=== PATIENT | male | born 1965 | race Two or more races ===

== ENCOUNTER 2018-11-12 20:21 | Emergency (ER) | payer BC, OTHER ==
[~2018-11-12] VITALS: Ht 170.2 cm; Wt 77.1 kg
[~2018-11-12 20:21] MED LIST: HYDR25TA4 PO; LISI-603 PO; OMEG1CAP PO
--- NOTE | 2018-11-12 21:05 | NUR ---
PT BIBSELF COMPLAINING OF ABD PAIN X "FEW DAYS". PT STATES 8/10 PAIN, WITH NAUSEA. PT HAS HX OF COLON CANCER. PT AXO4. RESPIRATIONS EVEN AND UNLABORED. PT PUT ON THE LEAD PRESS OPERATOR AND PULSE OX. PENDING EVAL FROM ER .
--- NOTE | 2018-11-12 21:10 | NUR ---
PT AMBULATORY WITH STEADY GAIT TO BATHROOM. URINE SAMPLE OBTAINED.
[2018-11-12] MEDS ORDERED: ONDANSETRON HCL/PF 4 MG/2 ML VIAL IVP ONE (22:30)
[2018-11-12] MEDS ORDERED: IV NS 0.9% 1,000 ML BAG IV ONE (22:30)
[2018-11-12] MEDS ORDERED: FAMOTIDINE/PF INJ 20 MG/2 ML VIAL IV ONE ×2 (22:30→22:53)
[2018-11-12 22:46] LABS: APPEARANCE,URINE Clear (CLEAR); BILIRUBIN,URINE Negative (NEGATIVE); BLOOD, URINE Negative Ery/uL (NEGATIVE); COLOR,URINE Amber (YELLOW); KETONES,URINE Negative (NEGATIVE); LEUKOCYTE ESTERASE ,URINE Negative (NEGATIVE); NITRITE, URINE Negative (NEGATIVE); PROTEIN,URINE Negative (NEGATIVE); UGLUCOSE Negative (NEGATIVE)
[2018-11-12] MEDS ORDERED: HYDROMORPHONE 1 MG/1 ML DISP.SYRIN ONE (22:51)
[2018-11-12 22:56] LABS: BASOPHILS % (AUTO) 0.4 % (0.0-2.0); EOSINOPHILS % (AUTO) 2.1 % (0.0-6.0); HEMATOCRIT 42 % (39-51); HEMOGLOBIN 14.3 g/dL (13.5-17.5); LYMPHOCYTES # (AUTO) 3.3 /CMM (0.8-4.8); LYMPHOCYTES % (AUTO) 45.8 % (20.0-44.0); MEAN CORPUSCULAR HGB CONC 34 g/dl (31.0-36.0); MEAN CORPUSCULAR VOLUME 90 fL (80-96); MONOCYTES # (AUTO) 1.1 /CMM (0.1-1.30); MONOCYTES % (AUTO) 14.7 % (2.0-12.0); NEUTROPHILS # (AUTO) 2.7 /CMM (1.8-8.9); PLATELET COUNT (AUTO) 220 /CMM (150-450); WHITE BLOOD COUNT (AUTO) 7.2 K/uL (4.3-11.0)
[2018-11-12] MEDS ORDERED: CT SWABBABLE VALVE TRANS SET 1 EA INFUS.SET MC ONE (22:57)
[2018-11-12] MEDS ORDERED: IOHEXOL-300 100 ML VIAL IV ONE (22:57)
[2018-11-12] MEDS ORDERED: IV NS 0.9% 250 ML IV ONE (22:57)
[2018-11-12] MEDS ORDERED: HYDROMORPHONE 1 MG/1 ML DISP.SYRIN IV ONE (23:00)
--- NOTE | 2018-11-12 23:00 | NUR ---
XRAY AT BEDSIDE.
[2018-11-12 23:05] LABS: CALCIUM, SERUM 8.5 mg/dL (8.5-10.1); CARBON DIOXIDE 31 mmol/L (21-32); CHLORIDE 105 mmol/L (98-107); CREATININE 0.9 mg/dL (0.6-1.3); GLUCOSE 108 mg/dL (74-106); POTASSIUM 4.5 mmol/L (3.5-5.1); SODIUM SERUM 138 mmol/L (136-145); UREA NITROGEN, BLOOD 11 mg/dL (7-18)
[2018-11-12 23:14] LABS: BACTERIA,URINE Rare /HPF (None Seen); CALCIUM OXALATE CRYSTALS,UR Moderate /HPF (None Seen); RBC,URINE 0-2 /HPF (0-2); SQUAMOUS EPITHELIAL CELL,UR Rare /HPF (None Seen)
[2018-11-12 23:26] LABS: ALANINE AMINOTRANSFERASE 304 U/L (12-78); ALKALINE PHOSPHATASE 217 U/L (46-116); ASPARTATE AMINOTRANSFERASE 120 U/L (15-37); BILIRUBIN,DIRECT 0.1 mg/dL (0.0-0.2); BILIRUBIN,TOTAL 0.4 mg/dL (0.2-1.0); LIPASE 51 U/L (73-393); TOTAL PROTEIN, SERUM 6.3 g/dL (6.4-8.2)
[2018-11-12] MEDS ORDERED: HYDROMORPHONE INJ 2 MG/ML DISP.SYRIN ONE (23:40)
[2018-11-13] MEDS ORDERED: HYDROMORPHONE INJ 2 MG/ML DISP.SYRIN IV ONE
--- NOTE | 2018-11-13 | NUR ---
PT RESTING IN BED, NAD NOTED. WILL CONTINUE TO MONITOR.
[2018-11-13 01:06] VITALS: BP 148/93
--- NOTE | 2018-11-13 01:06 | NUR ---
Patient discharged to home in stable condition. Written and verbal after care instructions given. Patient verbalizes understanding of instruction. IV removed. Catheter intact and site benign. Pressure and 4x4 applied to site. No bleeding noted.
== END 2018-11-13 01:07 | disposition home or self-care (01) ==
LOC: ER 20:31
DX: R11.2 Nausea with vomiting, unspecified (principal); R10.84 Generalized abdominal pain; R10.13 Epigastric pain; I10 Essential (primary) hypertension; Z90.49 Acquired absence of other specified parts of digestive tract; Z85.038 Personal history of other malignant neoplasm of large intestine; Z79.899 Other long term (current) drug therapy
CPT/HCPCS: 36415; 71045; 74177; 80048; 80076; 81001; 83605; 83690; 84484; 85025; 85730; 96361; 96374; 96375; 96376; 99284; J1170 ×2; J2405; J3490; J7030; J7050; Q9967; 81000-TC

== ENCOUNTER 2020-05-13 10:34 | Emergency (ER) | payer MEDICAID, OTHER ==
[~2020-05-13] VITALS: Ht 170.2 cm; Wt 74.8 kg
--- NOTE | 2020-05-13 10:35 | NUR ---
BIB RA 88 FROM HOME,WEAKNESS X 2 DAYS,LOW BP PER EMS 86/50, ALSO C/O ABDOMINAL PAIN. PATIENT NOTED WITH DISTENDED ABDOMEN AND EDEMA AT BLE. TO ER BED 8, HOOKED TO BP CUFF AND MONITOR, CHANGED TO HOSP GOWN, WARM BLANKET PROVIDED, PATIENT AAO x 4, ON O2 AT 4LPM VIA NC. DR ROCHA AT BEDSIDE FOR EVAL.
[2020-05-13] MEDS ORDERED: ONDANSETRON HCL/PF 4 MG/2 ML VIAL ONE (10:59)
[2020-05-13] MEDS ORDERED: FENTANYL PF 100MCG/2ML AMPUL ONE ×2 (10:59→12:29)
[2020-05-13] MEDS ORDERED: VANCOMYCIN 1 GM VIAL ONE (10:59)
[2020-05-13] MEDS ORDERED: PIPERACILLIN /TAZOBACTAM 3.375 G VIAL IV ONE (10:59)
[2020-05-13] MEDS ORDERED: ONDANSETRON HCL/PF 4 MG/2 ML VIAL IV ONE (11:00)
[2020-05-13] MEDS ORDERED: IV NS 0.9% 1,000 ML BAG IV ONE (11:00)
[2020-05-13] MEDS ORDERED: VANCOMYCIN 1 GM in IV D5W 250 ML IV ONE (11:00)
[2020-05-13] MEDS ORDERED: FENTANYL PF 100MCG/2ML AMPUL IV ONE ×2 (11:00→12:30)
[2020-05-13] MEDS ORDERED: PIPERACILLIN /TAZOBACTAM 3.375 G in IV D5W 50 ML IV ONE (11:00)
[2020-05-13 11:06] LABS: BASOPHILS % (AUTO) 0.2 % (0.0-2.0); HEMATOCRIT 35 % (39-51); HEMOGLOBIN 11.4 g/dL (13.5-17.5); LYMPHOCYTES # (AUTO) 0.3 /CMM (0.8-4.8); LYMPHOCYTES % (AUTO) 3.6 % (20.0-44.0); MEAN CORPUSCULAR HGB CONC 33 g/dl (31.0-36.0); MEAN CORPUSCULAR VOLUME 74 fL (80-96); MONOCYTES # (AUTO) 0.4 /CMM (0.1-1.30); MONOCYTES % (AUTO) 5.5 % (2.0-12.0); NEUTROPHILS # (AUTO) 7.4 /CMM (1.8-8.9); NEUTROPHILS % (AUTO) 90.7 % (43.0-81.0); PLATELET COUNT (AUTO) 234 /CMM (150-450); RED BLOOD CELL COUNT(AUTO) 4.74 MIL/uL (4.5-6.0); WHITE BLOOD COUNT (AUTO) 8.2 K/uL (4.3-11.0)
[2020-05-13] MEDS ORDERED: MAGN400T26 PO (11:08)
[2020-05-13] MEDS ORDERED: MORP30TA7 PO (11:08)
[2020-05-13] MEDS ORDERED: DEXA4TAB PO (11:08)
[2020-05-13] MEDS ORDERED: SPIR50TA5 PO (11:08)
[2020-05-13] MEDS ORDERED: TAMS-12 PO (11:08)
[2020-05-13] MEDS ORDERED: CALC-11 PO (11:08)
[2020-05-13] MEDS ORDERED: LOSA50TA39 PO (11:08)
[2020-05-13] MEDS ORDERED: FURO20TA4 PO (11:08)
--- NOTE | 2020-05-13 11:14 | NUR ---
CALLED RADAR AIR TRAFFIC CONTROLLER FOR MIDLINE.
[2020-05-13 11:19] LABS: ALANINE AMINOTRANSFERASE 195 U/L (12-78); ALBUMIN 1.5 g/dL (3.4-5.0); ALKALINE PHOSPHATASE 180 U/L (46-116); ASPARTATE AMINOTRANSFERASE 79 U/L (15-37); BILIRUBIN,DIRECT 1.2 mg/dL (0.0-0.2); BILIRUBIN,TOTAL 1.7 mg/dL (0.2-1.0); CALCIUM, SERUM 8.2 mg/dL (8.5-10.1); CARBON DIOXIDE 24 mmol/L (21-32); CHLORIDE 93 mmol/L (98-107); CREATININE 2.3 mg/dL (0.6-1.3); GLUCOSE 140 mg/dL (74-106); LIPASE 16 U/L (73-393); POTASSIUM 5.5 mmol/L (3.5-5.1); SODIUM SERUM 129 mmol/L (136-145); TOTAL PROTEIN, SERUM 5.6 g/dL (6.4-8.2); UREA NITROGEN, BLOOD 51 mg/dL (7-18)
--- NOTE | 2020-05-13 12:29 | NUR ---
PATIENT IN BED AWAKE, HOOKED TO EYEGLASS LENS CUTTER, PATIENT C/O ABDOMINAL PAIN, MD AWARE.
[2020-05-13] MEDS ORDERED: NOREPINEPHRINE 8 MG in IV NS 0.9% 242 ML IV PRN (12:30)
--- NOTE | 2020-05-13 12:37 | NUR ---
WHEELED OUT VIA RNEY FOR CT SCAN
--- NOTE | 2020-05-13 12:39 | NUR ---
Santiago clay in [facility] - 05/13/20 at 1314 by MALIKA WHEELED HAILEE VIA KRISTA FOR CT SCAN
--- NOTE | 2020-05-13 12:45 | NUR ---
PATIENT BACK FROM CT SCAN. PATIENT UNRESPONSIVE, NOTED WITH DARK BROWN EMESIS, IMMEDIATELY HOOKED TO PULP GRINDER, BP CUFF AND POX, PATIENT NOTED ASYSTOLE. DR ROCHA IMMEDIATELY NOTIFIED.
--- NOTE | 2020-05-13 12:45 | NUR ---
STARTED CPR. ACLS PROTOCOL INITIATED.
--- NOTE | 2020-05-13 12:46 | NUR ---
REFER TO CODE BLUE SHEET
--- NOTE | 2020-05-13 12:55 | NUR ---
PATIENT INTUBATED. ET SIZE: 7.5 23 AT THE LIP BILATERAL CHEST RISE AND FALL POSITIVE CO2 COLOR CHANGE
[2020-05-13] MEDS ORDERED: CALCIUM CHLORIDE 1,000 MG/10 ML DISP.SYRIN ONE (12:58)
--- NOTE | 2020-05-13 13:02 | NUR ---
Santiago clay in [facility] - 05/13/20 at 1326 by MALIKA TIME OF CALLED BY DR ROCHA
--- NOTE | 2020-05-13 13:04 | NUR ---
TIME OF CALLED BY DR ROCHA
--- NOTE | 2020-05-13 13:10 | NUR ---
CALLED AND ASKED IF SHE CAN COME OVER TO SPEAK WITH OUR PROVIDER
--- NOTE | 2020-05-13 13:11 | NUR ---
EUGENE SIMS AT BEDSIDE FOR POST MORTEM
--- NOTE | 2020-05-13 13:16 | NUR ---
DR SONY FERNANDES CALLED AT [phone],SPOKE WITH JONATHAN, SHE WILL CONTACT THE PROVIDER TO GIVE US A CALL BACK
--- NOTE | 2020-05-13 13:30 | NUR ---
hospitality services manager requested by Dr. Olivo as patient . SW met with patient . Affirmed feelings and provided information regarding next steps. SW to remain available for all needs regarding this patient.
--- NOTE | 2020-05-13 13:30 | NUR ---
DR Kamila ROCHA SPEAKING WITH OF PATIENT
[2020-05-13 13:39] LABS: BAND % (MANUAL) 10 % (0.0-5.0); LYMPHOCYTES % (MANUAL) 2 % (16-48); MONOCYTES % (MANUAL) 7 % (0-11.0); NEUTROPHILS % (MANUAL) 81 (42-76)
--- NOTE | 2020-05-13 13:39 | NUR ---
[facility] CALLED, NOT A CANDIDATE FOR TISSUE DONATION DUE TO AN ACTIVE CANCER AND SEPSIS PER JADYN
[2020-05-13] MEDS ORDERED: NOREPINEPHRINE 4 MG/4 ML AMPUL IV ONE (13:52)
--- NOTE | 2020-05-13 14:10 | NUR ---
PER NIRAV VIDAL OF DEPT OF [employer] HAND-SUCKER MACHINE OPERATOR, [id number], NOT A CORONERS CASE
--- NOTE | 2020-05-13 14:22 | NUR ---
CALL BACK FROM DR FERNANDES'S OFFICE SAYING THAT HE WILL SIGN THE CERTIFICATE
[2020-05-13 14:31] VITALS: BP 0/0
--- NOTE | 2020-05-13 14:43 | NUR ---
BODY TRANSFERRED TO [facility] [place] BY FIRE FIGHTERS DISPATCHER AND SECURITY
== END 2020-05-13 13:05 ==
LOC: ER 10:37
DX: A41.9 Sepsis, unspecified organism (principal); I46.9 Cardiac arrest, cause unspecified; N17.9 Acute kidney failure, unspecified; R74.01 Elevation of levels of liver transaminase levels; I10 Essential (primary) hypertension; R11.2 Nausea with vomiting, unspecified; R00.0 Tachycardia, unspecified; Z85.038 Personal history of other malignant neoplasm of large intestine; Z90.49 Acquired absence of other specified parts of digestive tract; Z79.899 Other long term (current) drug therapy
CPT/HCPCS: 31500; 36415; 71045; 74176; 80048; 80076; 83605; 83690; 84484; 85007; 85025; 85730; 87040 ×2; 87804 ×2; 93005 ×2; 96365; 96367; 96368; 96375; 96376; 99291; J2405; J2543; J3010 ×2; J3370; J3490; J7030 ×2; J7040 ×2; J7060